=== PATIENT | female | born 1985 | race Caucasian/White ===

== ENCOUNTER 2017-10-18 08:06 | Emergency (ER) | payer OTHER ==
[~2017-10-18] VITALS: Ht 162.6 cm; Wt 109.8 kg
[~2017-10-18 08:06] MED LIST: EXPECTA PRENAT1 EACH PO; FOLGARD TABLET1 EAC1 PO; IRON27 MG PO; IRON325 M1 PO; PROBIOTIC1 EAC1 PO; SUDAFED30 MG PO; VITAMIN D1000 UNI1 PO; ZYRTEC10 MG PO
[2017-10-18] MEDS ORDERED: ESCITALOPRAM OX10 MG PO (08:21)
[2017-10-18] MEDS ORDERED: ALLEGRA ALLERG180 MG PO (08:21)
[2017-10-18] MEDS ORDERED: IBUPROFEN600 MG PO (08:43)
== END 2017-10-18 09:00 | disposition home or self-care (01) ==
LOC: ED 08:06
DX: S93.601A Unspecified sprain of right foot, initial encounter (principal); Z88.2 Allergy status to sulfonamides; Z79.899 Other long term (current) drug therapy; W10.9XXA Fall (on) (from) unspecified stairs and steps, initial encounter
CPT/HCPCS: 73630; 99283

== ENCOUNTER 2019-08-22 05:45 | Day surgery (SDC) | payer OTHER ==
[~2019-08-22] VITALS: Ht 162.6 cm; Wt 93.9 kg
[~2019-08-22 05:45] MED LIST changes: +ALLEGRA ALLERG180 MG PO; +CALCIUM500 M1 PO; +ENSKYCE1 EACH PO; +ESCITALOPRAM OX10 MG PO; +IBUPROFEN600 MG PO; +MULTIVITAMINS1 EAC8 PO; +PSEUDOEPHEDRINE30 MG PO; +VITAMIN B COMP1 EACH PO; +VITAMIN D350 MC3 PO; +WELLBUTRIN XL150 MG PO
[2019-08-22] MEDS ORDERED: PROBIOTIC1 EAC1 PO (06:08)
--- NOTE | 2019-08-22 09:00 | NUR ---
08/22/19 0900 Isabella Aponte 8-PT ARRIVES TO PACU ON 8 L VIA MASK WITH ORAL AIRWAY IN PLACE. PT NONREACTIVE TO VERBAL STIMULUS. VSS. SAST 100%. SURGICAL SITES WNL. TELEVISION HOST AND INSTRUCTOR HAIRSPRING AT BEDSIDE.
[2019-08-22] MEDS ORDERED: IBUPROFEN600 MG PO (09:13)
[2019-08-22] MEDS ORDERED: TYLENOL EXTRA500 MG PO (09:13)
[2019-08-22] MEDS ORDERED: OXYCODON-ACETA1 EAC2 PO (09:13)
--- NOTE | 2019-08-22 09:40 | NUR ---
PATIENT TO ROOM FROM PACU, AWAKE AND ALERT. PROVIDED ICE WATER AND APPLESACUCE PATIENT TOLERATING WELL. REPORTING PAIN 2/10 ON PAIN SCALE. PATIENT STATED PAIN IN RUQ, PUNCTURE SITES HAVE STERI STRIPS WITH SEROUS DRAINAGE. REINFORCED WITH BANDAIDS.
--- NOTE | 2019-08-22 10:14 | NUR ---
PT ALERT AND SUPPORTED BY HER LAURA. PT INFORMED BY RN THAT SURGERY WILL BE DELAYED FOR A SHORT TIME. BOTH SEEMED TO BE VERY UNDERSTANDING AND ACCEPTING. LAURA REQUESTED A PAGER, FLORA WALTON RESPONDED. SENSED NO REAL DISTRESS, ACCEPT PT STATED SHE WILL LOOK FORWAD TO FEELING BETTER. GAVE COMFORT AND ENCOURAGEMENT-PT DID REQUEST PRAYER AND THANKED ME FOR TIME SPENT WITH THEM.
--- NOTE | 2019-08-22 10:40 | NUR ---
PATIENT UP TO BATHROOM, STEADY ON FEET. VOIDED WELL, CLEAR YELLOW URINE. PATIENT BACK TO ROOM, PAIN WELL CONTROLLED. NO NAUSEA/VOMITTING. VSS. PATIENT STATES " I THINK I AM READY TO GO HOME".
--- NOTE | 2019-08-22 11:15 | NUR ---
PROVIDED PATIENT WITH DISCHARGE INSTRUCTION, ANSWERED QUESTIONS AND CONCERNS. SCRIPT IN PATIENT HAND. CALL TO DR. SAENZ OFFICE SPOKE WITH CHIDI TO SET UP F/U APPOINTMENT. REPORTED THE OFFICE WILL CALL PATIENT WITH INFORMATION FOR APPOINTMENT, PATIENT AWARE. PLACED LARGER BANDAID OVER STERI STRIPS TO PUNCTURE SITE. SMALL AMOUNTS OF SEROUS DRAINAGE. DISCUSSED S/S OF INFECTION AND POST OP CARE AND RESTRICTIONS. PATIENT VERBALIZED UNDERSTANDING. VSS. PROVIDED WHEELCHAIR RIDE TO FRONT. PATIENT TRANSFERED INTO CAR WELL.
--- NOTE | 2019-08-25 09:22 | OR ---
[facility] [address] [place], [place] [address] Signed DATE OF OPERATION: 08/22/2019 SURGEON: Kade Thomas MD PREOPERATIVE DIAGNOSIS: Chronic acalculous cholecystitis (CCK HIDA ejection 0% with reproduction of symptoms). POSTOPERATIVE DIAGNOSIS: Chronic calculous cholecystitis. PROCEDURES: 1. Laparoscopic cholecystectomy with intraoperative cholangiogram. 2. Surgeon-directed fluoroscopy. ANESTHESIA: General endotracheal; Bo Jewel, DIRECTOR VIDEO, and local 10 mL of 0.25% Marcaine with epinephrine. INDICATION: This morbidly obese 33-year-old white woman is a patient of Dr. Andrei Brady and has had symptoms highly typical of biliary colic including right subcostal pain after eating. She underwent an ultrasound approximately a year ago, which was normal. She had progressive and worsening symptoms and underwent a CCK HIDA test performed on August 12, 2019 showing essentially no ejection fraction and marked reproduction of her right upper abdominal pain. She is admitted at this time to undergo cholecystectomy for probable acalculous cholecystitis. She understands the risks of bleeding, infection, bile duct injury, need for open procedure, and of course failure to cure her symptoms and wishes to proceed. FINDINGS: The gallbladder was chronically inflamed. The liver was fatty infiltrated. The gallbladder once excised showed profound cholesterolosis and five small yellow mulberry gallstones. Cholangiogram was normal. There were no other findings of concern. DESCRIPTION OF PROCEDURE: The patient was brought to the operating room, given a general endotracheal anesthetic. Preoperative antibiotic Ancef was given. Sequential compression device stockings used and heparin subcutaneously administered. After satisfactory general endotracheal anesthesia, the abdomen was prepared with a Electronically Signed By: KADE THOMAS MD 08/25/19 0922 PATIENT NAME: KARL CHANDLER OPERATIVE REPORT DATE OF : [birth year] REPORT #: [id number] PHYSICIAN: KADE THOMAS MD PCP: ANDREI BRADY MD REPORT IS CONFIDENTIAL AND NOT TO BE RELEASED WITHOUT AUTHORIZATION [facility] [address] [place], [place] [address] Signed chlorhexidine solution and draped sterilely. An infraumbilical incision was made and using an open Alejandro cannula technique, pneumoperitoneum was achieved to a level of 14 mmHg of carbon dioxide gas. Intraabdominal inspection showed no sign of ascites or carcinomatosis. The gallbladder was identified as chronically inflamed. The liver was fatty infiltrated. Three additional trocars were placed in usual configuration in the subxiphoid, right midclavicular, and right anterior axillary line. The gallbladder was elevated cephalad and retracted laterally. She did have a chronic inflammatory appearance. Using blunt electrocautery dissection, the triangle of Calot was dissected free. The cystic duct was well identified. A clip was applied across gallbladder cystic duct junction and transverse choledochotomy made in the cystic duct. Retrograde milking of the cystic duct showed some thickened yellow bile. Using the Dow type cholangiocatheter, intraoperative cholangiography was undertaken showing free flow of contrast in biliary tree with prompt emptying into the duodenum. There was no sign of biliary defect, biliary anomaly or other abnormality. The catheter was removed. The cystic duct was triply clipped and divided. The gallbladder was dissected free in a retrograde fashion using electrocautery. The clips were applied to the cystic arterial branches as necessary. The gallbladder was extracted through the infraumbilical port site, opened on the back table and found to have profound cholesterolosis and several small yellow mulberry-shaped gallstones. Irrigation was undertaken in subhepatic space, showed no sign of bile leak, bleeding or other problems. The trocars were removed under direct visualization showing no sign of bleeding. The infraumbilical fascial incision was reapproximated with interrupted 0 Vicryl suture. All wounds were copiously irrigated with saline solution and 10 mL of 0.25% Marcaine with epinephrine was injected locally. The skin was reapproximated with interrupted 3-0 Vicryl. Steri-Strips were applied. The patient was ultimately extubated and transferred to recovery room in good condition having suffered no complications. Sponge, needle, and instrument counts reported as correct x3. Kade Thomas MD /MODL /[id number] cc: MD Lexii Page MD Electronically Signed By: KADE THOMAS MD 08/25/19 0922 PATIENT NAME: KARL CHANDLER OPERATIVE REPORT DATE OF : [birth year] REPORT #: [id number] PHYSICIAN: KADE THOMAS MD PCP: ANDREI BRADY MD REPORT IS CONFIDENTIAL AND NOT TO BE RELEASED WITHOUT AUTHORIZATION [address] [address] Signed Copies: ANDREI BRADY MD, CYNTHIA SUE MD ~ Electronically Signed By: KADE THOMAS MD 08/25/19 0922 PATIENT NAME: KARL CHANDLER OPERATIVE REPORT DATE OF : [birth year] REPORT #: [id number] PHYSICIAN: KADE THOMAS MD PCP: ANDREI BRADY MD REPORT IS CONFIDENTIAL AND NOT TO BE RELEASED WITHOUT AUTHORIZATION
--- NOTE | 2019-08-25 10:49 | PATH ---
[facility] [place] [facility] [address] [place], [place] [address] Signed SPECIMEN(S): A GALLBLADDER WITH STONES SPECIMEN SOURCE: A. GALLBLADDER WITH STONES CLINICAL HISTORY: Chronic cholecystitis. FINAL PATHOLOGIC DIAGNOSIS: Gallbladder, cholecystectomy: - Chronic cholecystitis with cholesterolosis. - Cholelithiasis. NAL:cml:C2NR MICROSCOPIC EXAMINATION: Histologic sections of all submitted blocks are examined by light microscopy. These findings, together with the gross examination, support the pathologic diagnosis. GROSS DESCRIPTION: The specimen, labeled "BJ, A" and "gallbladder with stones" on the requisition, is received in formalin and consists of Specimen: Previously opened gallbladder. Dimensions: 7 x 3 x 3 cm. Serosa: Holloway and smooth. Cystic Duct: Unobstructed. Calculi: Four hard yellow granular calculi that vary from 0.4-0.6 cm. Mucosa: Holloway to yellow and velvety. Wall thickness: 0.2 cm. Lymph node: No pericystic lymph node is grossly identified. Additional: None. Cushion Maker Hand sections are submitted in cassette A1. SS (under the direct supervision of a pathologist) The Gross Description was prepared using a voice recognition system. The report was reviewed for accuracy; however, sound-alike word errors, addition and/or deletions may occur. If there is any question about this report, please contact Client Services. PERFORMING LABORATORY: The technical component was performed by [facility], [address] [place] [address] (Assembly Machine Tool Setter: Melissa Lemus MD; CLIA# [id number]). PATIENT NAME: KARL CHANDLER PATHOLOGY DATE OF : [birth year] REPORT #: [id number] PHYSICIAN: HUEY WHITLOCK PCP: ANDREI DAVILA MD REPORT IS CONFIDENTIAL AND NOT TO BE RELEASED WITHOUT AUTHORIZATION [facility] [address] [place], [place] [address] Signed Professional interpretation was performed by [facility], [address] [address] (CLIA# [id number]). Diagnostician: Maira Sullivan MD Pathologist Electronically Signed 08/25/2019 Copies: ~ PATIENT NAME: KARL CHANDLER PATHOLOGY DATE OF : [birth year] REPORT #: [id number] PHYSICIAN: HUEY WHITLOCK PCP: ANDREI DAVILA MD REPORT IS CONFIDENTIAL AND NOT TO BE RELEASED WITHOUT AUTHORIZATION
== END 2019-08-22 11:15 | disposition home or self-care (01) ==
LOC: DS 05:45
PROVIDERS: Surgery
PROC: BF13YZZ Fluoroscopy of Gallbladder and Bile Ducts using Other Contrast (ICD-10-PCS; 2019-08-22)
PROC: 0FT44ZZ Resection of Gallbladder, Percutaneous Endoscopic Approach (ICD-10-PCS; principal; 2019-08-22 06:45)
DX: K80.10 Calculus of gallbladder with chronic cholecystitis without obstruction (principal); K76.0 Fatty (change of) liver, not elsewhere classified; E66.01 Morbid (severe) obesity due to excess calories; F41.8 Other specified anxiety disorders; G43.909 Migraine, unspecified, not intractable, without status migrainosus; Z88.2 Allergy status to sulfonamides; Z79.899 Other long term (current) drug therapy; Z68.37 Body mass index [BMI] 37.0-37.9, adult
CPT/HCPCS: 00790; 74300; J0690; J1100; J1644; J1885; J2001; J2405; J2704; J3010; J7121; Q9967

== ENCOUNTER 2023-01-04 06:53 | Day surgery (SDC) | payer OTHER ==
[2023-01-01 10:28] VITALS: BP 125/86
[~2023-01-04] VITALS: Ht 162.6 cm; Wt 108.6 kg
--- NOTE | ~2023-01-04 | OR ---
[facility] [address] [place], [place] [address] Draft DATE OF OPERATION: 01/04/2023 SURGEON: Myesha Lyons DO PRESS OPERATOR HELPER: Bob Churchill DO PREOPERATIVE DIAGNOSIS: Abnormal uterine bleeding, adenomyosis, dysmenorrhea. POSTOPERATIVE DIAGNOSIS: Abnormal uterine bleeding, adenomyosis, dysmenorrhea as well as intraabdominal adhesions. PROCEDURE: Total laparoscopic hysterectomy, bilateral salpingectomy, lysis of adhesions, cystoscopy. ANESTHESIA: General. BLOOD LOSS: 25 mL. COMPLICATIONS: None. FINDINGS: Mildly enlarged uterus with disproportionately normal-appearing fallopian tubes, bilateral normal-appearing ovaries with simple appearing cyst on the right ovary. Omental adhesion to anterior abdominal wall just inferior to umbilicus. Gallbladder surgically absent. Otherwise normal-appearing liver margin. Normal-appearing bladder without scarring. No evidence of endometriosis and posterior cul-de-sac were either bilateral ovarian fossa or elsewhere across the perineum. INDICATIONS: The patient is a 37-year-old female with progressively worsening heavy periods for the last six months with the occasional umbrella mender. Intermixed ultrasound was significant for likely adenomyosis. Hysteroscopy, D and C yielded benign findings. No prior history of abnormal Pap. The Pap is up to date. Medical management was discussed and ultimately Ms. Pascual elected to proceed with definitive surgical management in the form of a hysterectomy. Risks, benefits, and alternatives were reviewed at length and she elected PATIENT NAME: KARL PASCUAL MARIA T OPERATIVE REPORT DATE OF : 85 REPORT #: [id number] PHYSICIAN: MYESHA LYONS DO PCP: ANDREI DAVILA MD REPORT IS CONFIDENTIAL AND NOT TO BE RELEASED WITHOUT AUTHORIZATION [facility] [address] [place], [place] [address] Draft to proceed. DESCRIPTION OF PROCEDURE: The patient was taken to the operating room. She was given 2 g Ancef IV, 5000 units of heparin subcutaneously. She was placed under general anesthesia and positioned in dorsal lithotomy. She was prepped and draped in normal sterile fashion. Garcia catheter was placed. Weighted speculum was placed in the vagina. Anterior lip of the cervix was grasped with an Allis clamp. Uterus was sounded to 11 cm. VCare uterine manipulator was placed without difficulty. All other instrumentation was removed from the pelvis, except for Garcia catheter and surgeon's gloves were changed and attention was turned to the abdomen. Local anesthetic was injected in her prior infraumbilical scar from her laparoscopic cholecystectomy. Incision was made with a scalpel, carried down to the underlying layer of fascia with blunt and sharp dissection with Metzenbaum scissors. Fascia was grasped with hemostats, elevated and incised with Metzenbaum scissors. Stay suture of 0 Vicryl was placed on each of the superior and inferior margins. The peritoneum was entered bluntly. Finger sweep confirmed intraabdominal placement and Alejandro trocar was placed without difficulty. CO2 gas was used to achieve pneumoperitoneum. Additional trocars were placed under direct visualization and local anesthetic, first in the left lower quadrant, a 5 mm trocar and then in the right lower quadrant with an 8 mm expanding trocar. Blunt grasper and Trendelenburg positioning were used to retract the bowel from the pelvis and abdomen was surveyed with findings as noted above. LigaSure device was used to perform lysis of adhesions, cauterizing and cutting omental adhesion at the level of the fascia, releasing the adhesion with excellent hemostasis noted. Attention was then turned to the left tube which was grasped and elevated. Mesosalpinx was cauterized and cut using LigaSure device to the level of the cornea where tube was transected and removed from the pelvis under direct visualization. Right uteroovarian ligament was cauterized and cut also with the LigaSure device which was used for the remainder of the case except as otherwise noted. Then, right tube was grasped and elevated in a similar fashion the mesosalpinx was cauterized and cut until tube was transected at the cornua. Tube was also removed from the abdomen under direct visualization. Left utero-ovarian ligament was cauterized and cut. Then, attention was turned to dissection on the right. Right round ligament was cauterized and cut allowing for dissection of the broad ligament. Anterior leaf of the broad ligament was dissected inferiorly and anteriorly creating the bladder flap and then the posterior leaf was similarly dissected and cauterizing and cutting posteriorly to the level of the uterosacral ligaments then medially staying above the VCare uterine manipulator cup. Uterine vessels on the right were skeletonized, cauterized, and cut with resulting hemostasis. Bladder flap was further developed, then attention was turned to the left. Round ligament was cauterized and cut. Anterior leaf of the broad ligament was cauterized and cut anteriorly and medially, meeting the prior dissection allowing for complete development of the bladder flap. The posterior leaf was then cauterized and cut, removing the inferior medially to the level of the uterosacral PATIENT NAME: KARL PASCUAL OPERATIVE REPORT DATE OF : [birth year] REPORT #: [id number] PHYSICIAN: MYESHA LYONS DO PCP: ANDREI DAVILA MD REPORT IS CONFIDENTIAL AND NOT TO BE RELEASED WITHOUT AUTHORIZATION [facility] [address] [place], [place] [address] Draft ligament and brought medially to join prior dissection. Uterine vessels on the left were skeletonized, cauterized, and cut with excellent hemostasis noted. Colpotomy was then performed with the Harmonic Sonicision device. Of note, despite staying well within the groove of the Socii uterine manipulator, the anterior lip was noted to be quite thick, concerning for cutting through cervical tissue. Once colpotomy was performed, uterus and cervix were removed vaginally and replaced with a vaginal packing. These were inspected and portion of anterior lip of the cervix was noted to be absent. Surgeon's gloves were again changed. Attention was returned to the abdomen where anterior lip of the cervix was clearly delineated and grasped with a laparoscopic tenaculum and excised using the LigaSure device. The cervical remnant was then placed in the top of the vagina. The pelvis was suction irrigated with warm sterile saline, noted to be hemostatic. Vaginal cuff was closed with V-Loc suture using the Endo Stitch device working from right apex of the uterosacral ligament to left apex of the uterosacral ligament then back towards midline. Pelvis was again suction irrigated with warm sterile saline with continued hemostasis. Abdomen was desufflated. The fascia was closed with 0 Vicryl in a running fashion. Stay sutures were closed over the initial closure and tied. The skin was closed with 4-0 Monocryl. The vaginal packing was removed. Cervical remnant was removed and submitted to pathology along with remaining specimens, bilateral tubes, uterus and cervix. Garcia catheter was removed and cystoscopy was performed. Cystoscope was introduced into the bladder without difficulty. The dome was noted to be intact with bubbles present. No areas of puckering or visible suture were evident. Bilateral brisk ureteral efflux was noted quickly. Cystoscope was then removed. Garcia catheter was replaced. Vaginal cuff was easily palpated and noted to be intact. Other visualization was limited due to the length of the vagina. All sponge and instrument counts were correct. The patient was taken to recovery in stable and satisfactory condition. Myesha Lyons DO EMZ/MODL /[id number] Copies: PATIENT NAME: KARL PASCUAL MARIA T OPERATIVE REPORT DATE OF : [birth year] REPORT #: [id number] PHYSICIAN: MYESHA LYONS DO PCP: ANDREI DAVILA MD REPORT IS CONFIDENTIAL AND NOT TO BE RELEASED WITHOUT AUTHORIZATION [address] [place] [address] Draft ~ PATIENT NAME: KARL PASCUAL OPERATIVE REPORT DATE OF : [birth year] REPORT #: [id number] PHYSICIAN: MYESHA LYONS DO PCP: ANDREI DAVILA MD REPORT IS CONFIDENTIAL AND NOT TO BE RELEASED WITHOUT AUTHORIZATION
[~2023-01-04 06:53] MED LIST changes: +ALL DAY ALLERGY10 MG PO; +METFORMIN HCL500 M3 PO; +OXYCODON-ACETA1 EAC2 PO; +TYLENOL EXTRA500 MG PO; +XYZAL5 MG PO
[2023-01-04 07:48] VITALS: BP 137/70
[2023-01-04] MEDS ORDERED: XYZAL5 MG PO (07:53)
[2023-01-04] MEDS ORDERED: ALLEGRA ALLERGY60 MG PO (07:55)
[2023-01-04] MEDS ORDERED: WEGOVY0.25 MG/0. SUB-Q (07:57)
[2023-01-04 09:06] VITALS: BP 147/81
--- NOTE | 2023-01-04 11:21 | NUR ---
01/04/23 1121 [address] 1107- PT ARRIVES TO PACU, REACTIVE TO STIMULI ON ROOM AIR. ALL MONITORS APPLIED. LR INFUSING, RIVERA IN PLACE WITH CLEAR URINE.3 INCISIONAL SITES TO ABD (RLQ,LLQ,UMBILICUS) WITH DRESSINGS IN PLACE, CDI. PT FOLLOWING COMMANDS AND ENCOURAGED TO DEEP BREATH. PT HEART RATE ELEVATED 115-125, [employer] WAREHOUSE ASSOCIATE AT BEDSIDE AND AWARE, WILL MONITOR AND NOTIFY IF NO CHANGE. 1120- PT DENIES NAUSEA AND PAIN, "I JUST FEEL SLEEPY". CONTINUE TO MONITOR, NO NEEDS AT THIS TIME.
[2023-01-04 12:03] VITALS: BP 123/69
--- NOTE | 2023-01-04 12:21 | NUR ---
PT ARRIVES BACK TO DAY SURGERY ROOM #6 AT 1200. PT REQUESTING ORAL PAIN MEDICATIONS HER PAIN IS CURRENTLY A 4/10. PT PROVIDED JELL-O AND CHANTEL CRACKERS. PT ALSO PROVIDED WATER. PT REPORTS SHE DOES NOT FEEL LIKE SHE IS GOING TO VOMIT, BUT HAS SLIGHT NAUSEA. DISCUSSED MEDICATION OPTIONS. PT WOULD LIKE TO PROCEED. PT ALSO REPORTS SHE WILL TRY TO EAT THE CRACKERS AND JELL-O SHE REPORTS A HX OF FEELING NAUSEOUS WHEN SHE HASN'T EATEN. PT'S BROUGHT BACK TO THE ROOM. BED IN THE LOWEST POSITION, BED RAIL X1, CALL LIGHT PROVIDED. CONTINUOUS PULSE OX LEFT IN PLACE.
[2023-01-04 12:57] VITALS: BP 130/75
--- NOTE | 2023-01-04 13:12 | NUR ---
PT AMBULATED TO THE RESTROOM AND BACK TO BED. PT ABLE TO URINATE 250 ML OF CLEAR YELLOW URINE. PT REPORTS NO DIZZINESS OR NAUSEA WITH AMBULATION. PT RATES PAIN A 2/10. PT STATES THIS IS TOLERABLE FOR HER. PT STATES SHE IS READY TO GO HOME ONCE DC INSTRUCTIONS ARE PROVIDED. PT LAYING IN BED. AT THE BEDSIDE. CALL LIGHT WITH PT.
--- NOTE | 2023-01-04 13:18 | NUR ---
PT IN BED. ACCOMPANIED BY . BOTH INDICATED NO CONERNS REGARDING PROCEDURE OR RECOVERY. INDICATED THEIR QUESTIONS HAD BEEN ANSWERED BY MEDICAL STAFF. CONSENTED TO PRAYER. PRAYED FOR SUCCESSFUL PROCEDURE AND MERCER AND COMPLETE RECOVERY. GAVE PAGER TO .
[2023-01-04] MEDS ORDERED: PERCOCET 5-3251 EACH PO (13:27)
[2023-01-04] MEDS ORDERED: IBUPROFEN600 MG PO (13:32)
[2023-01-04] MEDS ORDERED: DIFLUCAN150 MG PO (13:33)
--- NOTE | 2023-01-04 13:50 | NUR ---
DC INSTRUCTIONS PROVIDED TO PT AND PT'S . ALL QUESTIONS ANSWERED. PT REPORTS SHE IS READY TO GO HOME. PT DRESSING HERSELF WITH HER IN THE ROOM. PT DENIES ANY DIZZINESS OR NAUSEA. PT REPORTS PAIN A 2/10, STATES THIS IS TOLERABLE FOR HER. PT'S GIVEN PRESCRIPTION. PT AMBULATED TO THE WHEELCHAIR. TOLERATED WELL.
[2023-01-04 13:51] VITALS: BP 124/63
--- NOTE | 2023-01-05 12:40 | PATH ---
[facility] [address] [place], [place] [address] Signed SPECIMEN(S): A UTERUS, CERVIX AND FALLOPIAN TUBES SPECIMEN SOURCE: A. UTERUS, CERVIX AND FALLOPIAN TUBES CLINICAL HISTORY: Abnormal uterine bleeding, adenomyosis. FINAL PATHOLOGIC DIAGNOSIS: Uterus, cervix and fallopian tubes: - Proliferative to early secretory endometrium, negative for hyperplasia or atypia. - Superficial endometrial adenomyosis. - Benign endocervix and ectocervix. - Benign fimbriated oviducts with incidental benign paratubal serous cysts. JVR:[facility]:C2NR MICROSCOPIC EXAMINATION: Histologic sections of all submitted blocks are examined by light microscopy. These findings, together with the gross examination, support the pathologic diagnosis. GROSS DESCRIPTION: The specimen, labeled and designated "Samara, uterus, cervix, fallopian tubes," is received in formalin and consists of a uterus with attached and detached disrupted cervix and detached bilateral fallopian tubes. The 121.7 g uterus and cervix measure 8.5 cm from fundus to ectocervix, 6.2 cm from cornu to cornu, and 3.9 cm from anterior to posterior. The serosal surface is pink-ohara smooth and unremarkable. The pale pink hemorrhagic and disrupted ectocervix upon reapproximation measures 4.0 x 3.9 cm with an eccentrically located slit-like os measuring 1.4 cm in length. The uterus is bivalved to reveal an endocervical canal with a slight herringbone pattern measuring 4.0 cm in length and 1.1 cm in diameter. The red hemorrhagic and triangular endometrial cavity measures 2.8 cm in length and 2.4 cm from cornu to cornu. No polyps or lesions are seen. The uterus is serially sectioned to reveal a red-ohara thickened endometrium measuring 0.2 cm and a pale pink trabecular myometrium measuring 2.1 cm in thickness. No leiomyomatous nodules are seen. The first violaceous fimbriated fallopian tube measures 4.4 cm in length and 0.8 cm in PATIENT NAME: KARL CHANDLER PATHOLOGY DATE OF : [birth year] REPORT #: [id number] PHYSICIAN: HUEY PATHOLOGY PCP: ANDREI DAVILA MD REPORT IS CONFIDENTIAL AND NOT TO BE RELEASED WITHOUT AUTHORIZATION [facility] [address] [place], [place] [address] Signed diameter. No paratubal cysts are seen. The second violaceous fimbriated fallopian tube measures 6.8 cm in length and 0.9 cm in diameter. Three serous fluid-filled, smooth-lined paratubal cysts are noted ranging from 0.4 to 1.0 cm in greatest dimension. Investor Relations Associate sections are submitted as follows: Cassette Summary: (A1) anterior and posterior endocervical canal (A2) additionally received fragment of cervical tissue (A3) anterior and posterior endomyometrium (A4) first fallopian tube, fimbria entirely submitted (A5-A6) second fallopian tube, fimbria and paratubal cysts entirely submitted (under the direct supervision of a pathologist) The Gross Description was prepared using a voice recognition system. The report was reviewed for accuracy; however, sound-alike word errors, addition and/or deletions may occur. If there is any question about this report, please contact Client Services. PERFORMING LABORATORY: Technical component was performed by [facility], [address] [place] [address] (CLIA# [id number]). Professional interpretation was performed by [facility], [address] [place] [address] [address] [place] [address] (CLIA#: [id number]). Diagnostician: Reggie Cervantes MD Pathologist Electronically Signed 01/05/2023 Copies: ~ PATIENT NAME: KARL CHANDLER PATHOLOGY DATE OF : [birth year] REPORT #: [id number] PHYSICIAN: HUEY PATHOLOGY PCP: ANDREI DAVILA MD REPORT IS CONFIDENTIAL AND NOT TO BE RELEASED WITHOUT AUTHORIZATION
== END 2023-01-04 14:05 | disposition home or self-care (01) ==
LOC: DS 06:53 → OPS 06:53 → DS 09:30 → OPS 14:05
PROVIDERS: ATTEND Obstetrics & Gynecology
PROC: 0UT94ZZ Resection of Uterus, Percutaneous Endoscopic Approach (ICD-10-PCS; principal; 2023-01-04 09:30)
PROC: 0UT74ZZ Resection of Bilateral Fallopian Tubes, Percutaneous Endoscopic Approach (ICD-10-PCS; 2023-01-04 09:30)
DX: N80.03 Adenomyosis of the uterus (principal); N94.6 Dysmenorrhea, unspecified; N83.8 Other noninflammatory disorders of ovary, fallopian tube and broad ligament; K66.0 Peritoneal adhesions (postprocedural) (postinfection); Z88.2 Allergy status to sulfonamides; Z88.1 Allergy status to other antibiotic agents
CPT/HCPCS: J0131; J0690; J0780; J1100; J1644; J1885; J2001; J2405; J2704; J3010; J3475; J3490; J7121

== ENCOUNTER 2024-03-13 13:00 | Emergency (ER) | payer OTHER ==
[~2024-03-13] VITALS: Ht 160 cm; Wt 109.9 kg
[~2024-03-13 13:00] MED LIST changes: +ALLEGRA ALLERGY60 MG PO; +DIFLUCAN150 MG PO; +PERCOCET 5-3251 EACH PO; +WEGOVY0.25 MG/0. SUB-Q
[2024-03-13] MEDS ORDERED: ASHWAGANDHA300 MG PO (13:17)
[2024-03-13] MEDS ORDERED: B COMPLEX1 EACH PO (13:18)
[2024-03-13] MEDS ORDERED: VALERIAN ROOT500 MG PO (13:19)
[2024-03-13 14:49] VITALS: BP 160/96
== END 2024-03-13 14:51 | disposition home or self-care (01) ==
LOC: ED 13:00
DX: S93.401A Sprain of unspecified ligament of right ankle, initial encounter (principal); W01.0XXA Fall on same level from slipping, tripping and stumbling without subsequent striking against object, initial encounter; Z79.84 Long term (current) use of oral hypoglycemic drugs; Z79.899 Other long term (current) drug therapy; Z88.0 Allergy status to penicillin; Z88.1 Allergy status to other antibiotic agents; Z88.2 Allergy status to sulfonamides
CPT/HCPCS: 73610; 99283